=== PATIENT | male | born 1935 | race Caucasian/White ===

== ENCOUNTER 2018-01-05 17:34 | Emergency (ER) | payer MEDICARE, OTHER ==
[2018-01-05 18:06] VITALS: BP 134/74
--- NOTE | 2018-01-05 19:29 | ED Physician Documentation ---
PD HPI UPPER EXT INJURY - Stated complaint Stated Complaint: LT HAND LAC - Chief complaint Chief Complaint: Ext Problem - History obtained from History obtained from: Patient - History of Present Illness Location: Left, Hand Type of injury: Laceration Where injury occurred: Home Timing - onset: Today Timing - details: Abrupt onset Similar symptoms before: Has not had sx before Recently seen: Not recently seen - Additonal information Additional information: Patient is an 82 year old male who is presenting to the emergency department for hand laceration. patient states that he was working out in his barn and he cut his hand on a vice. Patient states he is up to date on his vaccines and denies any other trauma. Review of Systems Constitutional: denies: Fever, Chills Eyes: reports: Reviewed and negative Ears: reports: Reviewed and negative Nose: reports: Reviewed and negative Throat: reports: Reviewed and negative Cardiac: reports: Reviewed and negative Respiratory: reports: Reviewed and negative GI: reports: Reviewed and negative : reports: Reviewed and negative Skin: reports: Laceration (s) Musculoskeletal: reports: Extremity pain Neurologic: reports: Reviewed and negative Psychiatric: reports: Reviewed and negative Endocrine: reports: Reviewed and negative Immunocompromised: reports: Reviewed and negative PD PAST MEDICAL HISTORY - Past Medical History Past Medical History: Yes Cardiovascular: Hypertension, Coronary artery disease, Atrial fibrillation GI: GERD - Past Surgical History Past Surgical History: Yes General: Appendectomy Ortho: ACL reconstruction, Rotator cuff repair - Present Medications Home Medications: Ambulatory Orders Medication Instructions Recorded Confirmed Apixaban [Eliquis] 1 tab PO DAILY 01/05/18 01/05/18 Aspirin 1 tab PO DAILY 01/05/18 01/05/18 Cephalexin [Keflex] 500 mg PO Q6H 7 Days capsule 01/05/18 Dronedarone HCl [Multaq] 1 tab PO DAILY 01/05/18 01/05/18 Esomeprazole Magnesium [Nexium] 1 tab PO DAILY 01/05/18 01/05/18 Lisinopril 1 tab PO DAILY 01/05/18 01/05/18 Metoprolol Succinate 1 tab PO DAILY 01/05/18 01/05/18 - Allergies Allergies/Adverse Reactions: Allergies Allergy/AdvReac Type Severity Reaction Status Date / Time Sulfa (Sulfonamide Allergy Unknown Verified 01/05/18 18:06 Antibiotics) - Social History Does the pt smoke?: No Smoking Status: Never smoker - Immunizations Immunizations are current?: Yes PD ED PE NORMAL - General General: Alert and oriented X 3 - HEENT HEENT: Atraumatic - Cardiac Cardiac: RRR - Respiratory Respiratory: No respiratory distress - Abdomen Abdomen: Non distended - Neuro Neuro: Alert and oriented X 3, No motor deficit, Normal speech Eye Opening: Spontaneous PD ED PE EXPANDED - Derm Derm: Laceration(s) - Extremities Extremities: Left hand (skin flap of posterior portion of left hand 3cm) Results - Vitals Vitals: Vital Signs - 24 hr 01/05/18 18:04 Temperature 37.0 C Heart Rate 60 Respiratory 18 Rate Blood Pressure 134/74 H O2 Saturation 99 Oxygen O2 Source Room air Procedures - Laceration (location) left hand Length in cm: 3 Wound type: Flap Neurovascular status: Sensory intact, Motor intact, Vascular intact Tendon involvement: Tendon intact Skin layer closure: Dermabond, Steri strips Other: Tetanus UTD Complexity: Simple PD MEDICAL DECISION MAKING - ED course Complexity details: reviewed old records, reviewed results, re-evaluated patient , considered differential, d/w patient ED course: Patient was seen and examined at bedside. Patient's wound was cleaned and repaired as described above. Patient required no further work up and was stable for discharge with outpatient follow up. Departure - Departure Disposition: 01 Home, Self Care Clinical Impression: Skin tear of hand without complication Condition: Good Instructions: ED Laceration Hand Follow-Up: primary,care provider [Other] - As Needed Prescriptions: Cephalexin [Keflex] 500 mg PO Q6H 7 Days capsule Comments: Your hand has been repaired with steri-strips and glue. the strips should stay on for about the next week and they will fall off on their own. If one falls of on the next few days then you should replace it. You should monitor for signs of infection and if you see them you should start the antibiotics. Otherwise you can take motrin or tylenol as needed for pain. Discharge Date/Time: 01/05/18 19:32
== END 2018-01-05 19:32 | disposition home or self-care (01) ==
LOC: ED 17:34
DX: S61.412A Laceration without foreign body of left hand, initial encounter (principal); W22.8XXA Striking against or struck by other objects, initial encounter; Y92.015 Private garage of single-family (private) house as the place of occurrence of the external cause; I10 Essential (primary) hypertension; I25.10 Atherosclerotic heart disease of native coronary artery without angina pectoris; I48.91 Unspecified atrial fibrillation; K21.9 Gastro-esophageal reflux disease without esophagitis; Z79.82 Long term (current) use of aspirin; Z79.01 Long term (current) use of anticoagulants
CPT/HCPCS: 12002; 99282; 99283

== ENCOUNTER 2021-07-29 23:48 | Emergency (ER) | payer MEDICARE, OTHER ==
[2021-07-30 00:05] VITALS: BP 141/85
--- NOTE | 2021-07-30 00:18 | ED Physician Documentation ---
PD HPI LOWER EXT INJURY - Stated complaint Stated Complaint: L LEG LAC - Chief complaint Chief Complaint: Laceration - History obtained from History obtained from: Patient - History of Present Illness PD HPI LOW EXT INJURY LOCATION: Left, Lower leg Type of injury: Other (bleeding) Where injury occurred: Home Timing - onset: How many minutes ago (90) Timing - details: Abrupt onset Pain level max: 0 Pain level now: 0 Recently seen: Not recently seen - Additional information Additional information: patient was doing some yard work earlier today, does not have any recollection of an injury although he subsequently noticed a small scab of dried blood on his left lower leg anterior surface. There was no pain associated with this. He takes eliquis for atrial fibrillation. Tonight, approximately 90 minutes COOK SHORT ORDER, he removed his pants when getting ready for bed and noticed the area no longer was scabbed and was now bleeding, and he comes to ED due to persistent bleeding for the past hour, stops temporarily with pressure Review of Systems Skin: reports: Abrasion (s) Musculoskeletal: reports: Reviewed and negative PD PAST MEDICAL HISTORY - Past Medical History Past Medical History: Yes Cardiovascular: Hypertension, Coronary artery disease, Atrial fibrillation GI: GERD - Past Surgical History Past Surgical History: Yes General: Appendectomy Ortho: ACL reconstruction, Rotator cuff repair - Present Medications Home Medications: Ambulatory Orders Medication Instructions Recorded Confirmed Apixaban [Eliquis] 1 tab PO DAILY 01/05/18 07/30/21 Aspirin 1 tab PO DAILY 01/05/18 07/30/21 Dronedarone HCl [Multaq] 1 tab PO DAILY 01/05/18 07/30/21 Esomeprazole Magnesium [Nexium] 1 tab PO DAILY 01/05/18 07/30/21 Metoprolol Succinate 1 tab PO DAILY 01/05/18 07/30/21 lisinopriL [Lisinopril] 1 tab PO DAILY 01/05/18 07/30/21 - Allergies Allergies/Adverse Reactions: Allergies Allergy/AdvReac Type Severity Reaction Status Date / Time Sulfa (Sulfonamide Allergy Unknown Verified 07/30/21 00:09 Antibiotics) - Social History Does the pt smoke?: No Smoking Status: Never smoker Does the pt drink ETOH?: Yes ETOH Use: Wine Does the pt have substance abuse?: No - Immunizations Immunizations are current?: Yes - POLST Patient has POLST: No PD ED PE NORMAL - Vitals Vital signs reviewed: Yes - General General: Alert and oriented X 3, No acute distress, Well developed/nourished - Derm Derm: Normal color - Extremities Extremities: No tenderness to palpate, No edema PD ED PE EXPANDED - Extremities LUIS LE visual: 1 - abrasion (small, superficial abrasion (0.5 cm diameter) with slow but steady bleeding from punctate source) Results - Vitals Vitals: Vital Signs - 24 hr 07/30/21 00:03 Temperature 36.4 C L Heart Rate 65 Respiratory 16 Rate Blood Pressure 141/85 H O2 Saturation 100 Oxygen O2 Source Room air PD MEDICAL DECISION MAKING - ED course Complexity details: considered differential, d/w patient ED course: bleeding from pin-point source within a superficial left anterior lower leg abrasion site. the source appears to be along the course of a varicosity and the bleeding stops when pressure is applied for several minutes but eventually restarts. Pressure is reapplied and held for 10 minutes and then discontinued. A generous amount of dermabond was applied to the abraded area with specific attention to the area that had been bleeding. A second and then third layer were applied with adequate drying time between layers. This resulted in hemostasis; no further bleeding during ED stay. Departure - Departure Disposition: 01 Home, Self Care Clinical Impression: Skin tear of left lower leg without complication Condition: Good Instructions: ED Avulsion Dermal Discharge Date/Time: 07/30/21 01:10
== END 2021-07-30 01:10 | disposition home or self-care (01) ==
LOC: ED 23:48
DX: S80.812A Abrasion, left lower leg, initial encounter (principal); X58.XXXA Exposure to other specified factors, initial encounter; Y93.H9 Activity, other involving exterior property and land maintenance, building and construction; Y92.007 Garden or yard of unspecified non-institutional (private) residence as the place of occurrence of the external cause; I48.91 Unspecified atrial fibrillation; Z79.01 Long term (current) use of anticoagulants; Z79.82 Long term (current) use of aspirin; I10 Essential (primary) hypertension
CPT/HCPCS: 99281; 99282

== ENCOUNTER 2022-04-20 08:00 | Outpatient (CLI) | payer MEDICARE, OTHER | END 2022-04-20 23:59 | disposition home or self-care (01) | LOC: LAB 08:00 | PROVIDERS: ATTEND Registered Nurse | DX: N41.9 Inflammatory disease of prostate, unspecified (principal); R30.0 Dysuria | CPT/HCPCS: 87077; 87086; 87181 ==

== ENCOUNTER 2022-12-31 21:09 | Emergency (ER) | payer MEDICARE, OTHER ==
[2022-12-31 22:05] VITALS: BP 132/66
--- NOTE | 2022-12-31 22:13 | ED Physician Documentation ---
History of Present Illness - Stated complaint Stated Complaint: +C,FEVER,WEAK,COUGH - Chief complaint Chief Complaint: Fever - History obtained from History obtained from: Patient, Family () - Additonal information Additional information: 87-year-old man with past medical history A-fib on Eliquis and metoprolol presents with COVID-19 diagnosed today. Also with fever Tmax 102.7 at home. nonproductive cough. denies cp, soa, palpitation, abd pain n/v/d. states that he has been "slightly confused". Patient AO x3 in the emergency department. PD PAST MEDICAL HISTORY - Past Medical History Cardiovascular: Hypertension, Coronary artery disease, Atrial fibrillation GI: GERD - Past Surgical History Past Surgical History: Yes General: Appendectomy Ortho: ACL reconstruction, Rotator cuff repair - Present Medications Home Medications: Ambulatory Orders Medication Instructions Recorded Confirmed Apixaban [Eliquis] 1 tab PO DAILY 01/05/18 07/30/21 Aspirin 1 tab PO DAILY 01/05/18 07/30/21 Dronedarone HCl [Multaq] 1 tab PO DAILY 01/05/18 07/30/21 Esomeprazole Magnesium [Nexium] 1 tab PO DAILY 01/05/18 07/30/21 Metoprolol Succinate 1 tab PO DAILY 01/05/18 07/30/21 lisinopriL [Lisinopril] 1 tab PO DAILY 01/05/18 07/30/21 - Allergies Allergies/Adverse Reactions: Allergies Allergy/AdvReac Type Severity Reaction Status Date / Time Sulfa (Sulfonamide Allergy Unknown Verified 12/31/22 21:30 Antibiotics) - Social History Does the pt smoke?: No Smoking Status: Never smoker Does the pt drink ETOH?: Yes Does the pt have substance abuse?: No - Immunizations Immunizations are current?: Yes - POLST Patient has POLST: No PD ED PE NORMAL - Vitals Vital signs reviewed: Yes - General General: Alert and oriented X 3, No acute distress, Well developed/nourished - HEENT HEENT: Atraumatic, PERRL, EOMI - Neck Neck: Supple, no meningeal sign - Cardiac Cardiac: RRR - Respiratory Respiratory: No respiratory distress, Clear bilaterally - Abdomen Abdomen: Non tender, Non distended - Derm Derm: Normal color, Warm and dry - Extremities Extremities: No edema Results - Vitals Vitals: Vital Signs - 24 hr 12/31/22 12/31/22 21:20 22:04 Temperature 38 C H Heart Rate 56 L 89 Respiratory 17 19 Rate Blood Pressure 90/75 132/66 H O2 Saturation 98 95 Oxygen O2 Source Room air PD Medical Decision Making - ED course ED course: 87-year-old man with past medical history of A-fib on Eliquis, high blood pressure, presents with COVID-19 diagnosed today. He is well-appearing in the emergency department in atrial fibrillation that is rate controlled otherwise vital signs and exam.Symptomatic care was discussed with the patient. We discussed option of Paxlovid but given that there is a high degree of medication interactions the decision was made to hold off at this time. Plan to follow-up with his primary care provider.Return precautions given. Departure - Departure Disposition: 01 Home, Self Care Clinical Impression: COVID-19 Condition: Good Instructions: COVID-19 [facility] Comments: You were seen in the emergency department for COVID-19. Please get lots of rest, hydrate, take Tylenol 650 mg every 6 hours as needed, and use a cool-mist humidifier at the bedside at nighttime. Follow-up with your primary care provider and return to the emergency department for new or worsening symptoms or other concerns.
== END 2022-12-31 22:28 | disposition home or self-care (01) ==
LOC: ED 21:09
DX: U07.1 COVID-19 (principal)
CPT/HCPCS: 99281; 99283

== ENCOUNTER 2023-04-25 13:45 | Outpatient (CLI) | payer MEDICARE, OTHER ==
--- NOTE | 2023-04-25 16:45 | MRI Report ---
PROCEDURE: LUMBAR SPINE WO INDICATIONS: LOW BACK PAIN TECHNIQUE: Noncontrast sagittal T1 spin echo and T2 fast echo, sagittal STIR, axial T1 and T2 fast spin echo thr ough the lumbar spine. In cases with scoliosis, additional coronal T2 fast spin echo may be performe d. COMPARISON: None. FINDINGS: Image quality: Excellent. Alignment and Curvature: No plain films are available for comparison. Thus, for numbering purposes, 5 lumbar type vertebral bodies will be presumed for the current report. This should be confirmed with plain film correlation prior to any lumbar spinal intervention. 2 mm of anterolisthesis of L2 on L3. 2 mm of retrolisthesis of L1 on L2. 2 mm of anterolisthesis of L3 on L4. Bone Marrow: Marrow is of normal overall signal. No acute vertebral body compression fractures. Mi ld reactive signal throughout the endplates of the lumbar and lower thoracic spine. Spinal Cord: Conus medullaris terminates at the lower L1 level. Visualized cord demonstrates normal signal and size. Paraspinous Soft Tissues: No paravertebral masses. T12-L1: Moderate disc desiccation. Mild diffuse disc bulge. Mild facet and ligament flavum hypertrop hy. Mild canal stenosis. Mild left and moderate right foraminal stenosis. L1-L2: Moderate disc desiccation. Mild disc height loss and diffuse disc bulge. Mild facet and lig ament flavum hypertrophy. Mild epidural lipomatosis. Mild canal stenosis. Moderate bilateral foramina l stenosis L2-L3: Moderate disc desiccation. Mild disc height loss. Moderate diffuse disc bulge. Moderate fac et and ligament flavum hypertrophy. Mild epidural lipomatosis. Severe canal stenosis. Moderate bilate ral foraminal stenosis. L3-L4: Disc desiccation. Mild diffuse disc bulge. Moderate facet and ligament flavum hypertrophy. M ild epidural lipomatosis. Severe canal stenosis. Moderate subarticular foraminal stenosis bilaterally . L4-L5: Severe disc height loss and desiccation. Mild diffuse disc bulge. Mild bilateral facet hyper trophy. Mild canal stenosis. Moderate bilateral foraminal stenosis. L5-S1: Moderate disc height loss and desiccation. Mild diffuse disc bulge. Mild bilateral facet and ligament flavum hypertrophy. Mild canal stenosis. Moderate bilateral foraminal stenosis. IMPRESSION: 1. Multilevel degenerative disc and facet disease, in addition to epidural lipomatosis and ligamentum flavum hypertrophy. 2. Multilevel canal stenoses, worst at L2-L3 and L3-L4 where there are severe canal stenoses. 3. Multilevel moderate foraminal stenoses. 4. Five lumbar type vertebral bodies were presumed for the purposes of the current report. Correlati on with plainfilms for numbering purposes is recommended prior to any lumbar spinal intervention. Reviewed by: Ruby Adamson MD on 04/25/2023 4:44 PM PDT Approved by: Ruby Adamson MD on 04/25/2023 4:44 PM PDT Station ID: [id number]
== END 2023-04-25 13:46 | disposition home or self-care (01) ==
LOC: DI 13:45
PROVIDERS: ATTEND Internal Medicine
DX: M47.816 Spondylosis without myelopathy or radiculopathy, lumbar region (principal); M51.36 Other intervertebral disc degeneration, lumbar region; M48.061 Spinal stenosis, lumbar region without neurogenic claudication